=== PATIENT | female | born 1950 | race Hispanic/Latino ===

== ENCOUNTER → 2017-04-29 | Outpatient (CLI) | payer MEDICARE, MEDICAID ==
--- NOTE | 2017-04-29 11:45 | RAD ---
EXAM DESCRIPTION: Pelvis CLINICAL HISTORY: 66 years Female, PAIN IN RIGHT HIP COMPARISON: None. FINDINGS: Single view of the pelvis demonstrates no definite pelvic fracture. The symphysis and SI joints are intact and no disruption of the pubic or ischial rami are seen. Each hip is unremarkable. IMPRESSION: Mild osteopenia, otherwise normal study Electronically signed by: Harish Shepherd MD 04/29/2017 11:44 AM [facility]
--- NOTE | 2017-04-29 11:45 | RAD ---
EXAM DESCRIPTION: Knee,Right Complete CLINICAL HISTORY: 66 years, Female, PAIN IN RIGHT KNEE COMPARISON: None TECHNIQUE: Four views of the right knee FINDINGS: Advanced degenerative changes and mild osteopenia of the right knee are present. Diffuse involvement of the three joint compartments is present, most severe in the medial compartment with a suggestion of a tiny amount of synovitis or minimal pleural effusion on the lateral view. Marginal osteophytes at all of the articular surfaces is evident. Joint space narrowing is most prominent medially IMPRESSION: 1. Moderately advanced degenerative changes right knee, particularly involving the medial joint compartment Electronically signed by: Harish Shepherd MD 04/29/2017 11:44 AM [facility]
--- NOTE | 2017-04-29 11:46 | RAD ---
EXAM DESCRIPTION: Knee,Left Complete CLINICAL HISTORY: 66 years, Female, PAIN IN LEFT KNEE COMPARISON: None TECHNIQUE: Four views of the left knee FINDINGS: Four views of the left knee demonstrate mild diffuse osteopenia and modest degenerative changes with marginal osteophytes and mild narrowing and irregularity of the medial joint compartment and milder changes laterally and in the patellofemoral articulation. No acute fracture or dislocation is seen. IMPRESSION: 1. Moderate degenerative changes left knee. Electronically signed by: Harish Shepherd MD 04/29/2017 11:45 AM [facility]
--- NOTE | 2017-04-29 11:47 | RAD ---
EXAM DESCRIPTION: Chest,2 Views CLINICAL HISTORY: PRE OP COMPARISON: None TECHNIQUE: PA/lateral FINDINGS: The lungs are well expanded and clear. No infiltrates or effusions or masses are noted. The heart is normal in size and shape with no evidence of vascular congestion. The aortic arch and descending aorta is moderately tortuous The cherry and mediastinum demonstrate normal contours. The bony spine and chest wall is normal for age in appearance. IMPRESSION: Normal chest, two views Electronically signed by: Harish Shepherd MD 04/29/2017 11:46 AM [facility]
== END ==
LOC: RAD 08:05
PROVIDERS: ATTEND Orthopaedic Surgery
DX: M17.11 Unilateral primary osteoarthritis, right knee (principal); M25.561 Pain in right knee; M25.551 Pain in right hip; Z01.818 Encounter for other preprocedural examination

== ENCOUNTER 2017-05-08 05:36 | Inpatient (IN) | payer MEDICARE, MEDICAID ==
--- NOTE | 2017-05-06 10:12 | HP ---
CHIEF COMPLAINT: Knee pain. HISTORY OF PRESENT ILLNESS: Michelle is a 66-year-old female with a history of severe bilateral knee pain. She has had multiple injections in both knees. She has had no trauma related to the onset of this, denies any radiation of pain and denies any neurologic symptoms. Because of the failure of conservative measures, she has requested operative intervention. Because of the advanced nature of her arthritis, she is only a candidate for a total knee arthroplasty. After discussing the risks, benefits and alternatives to that, the patient has given informed consent. PAST SURGICAL HISTORY: None. MEDICATIONS: 1. Atenolol. 2. Lisinopril. 3. Metformin. 4. Lovastatin. 5. Omeprazole. 6. Hydrocodone. 7. Indocin. ALLERGIES: PENICILLIN. CODE STATUS: Full code. IMMUNIZATIONS: Up to date. SOCIAL HISTORY: The patient does not drink or use any illicit drugs. She does smoke. FAMILY HISTORY: None pertinent to today's complaint. REVIEW OF SYSTEMS: Negative except as indicated in the History of Present Illness. PHYSICAL EXAMINATION: VITAL SIGNS: Blood pressure 122/85. Pulse 52. Height 5'3". Weight 173. MENTAL STATUS: The patient is awake, alert, and is able to give a good history and participate in the physical. The patient is oriented to person, place and time. SKIN: Normal tone and turgor. HEENT: Normocephalic, atraumatic. Pupils equal, round and reactive. Mucosal membranes are moist. NECK: Normal range of motion. No thyromegaly, no lymphadenopathy. CHEST: Normal respiratory excursion. CARDIAC: Regular rate and rhythm. No murmurs, rubs or gallops. MUSCULOSKELETAL: Bilateral upper extremities show full active range of motion although she does have some slight shoulder pain on the right. She has intact sensation of the extremities. They are warm and well perfused. There is no crepitus. The right lower extremity shows full range of motion of the hip. She has crepitus throughout her range of motion of the knee, but she does have full extension and flexion is to about 125 degrees. Sensation is intact. It is warm and well perfused. She has no varus/valgus or anterior/posterior laxity at this time. The left lower extremity shows full range of motion of the hip. Sensation is intact throughout and it is warm and well perfused. Strength is 5/5. She has significant tenderness diffusely, but most prominently along the medial aspect. IMAGING: X-rays show advanced arthritis. ASSESSMENT: 1. Arthritis. PLAN: The plan at this point is for total knee arthroplasty. We have discussed the risks, benefits, and alternatives to that and the patient has given informed consent. [facility][id number] [facility]
[2017-05-08] MEDS ORDERED: SODIUM CHL 0.9% 100ML MINI-BAG 100 ML IVPB ONE (05:40)
[2017-05-08] MEDS ORDERED: SODIUM CHLORIDE 0.9% 100ML 100 ML IVPB ONE (05:41)
[2017-05-08] MEDS ORDERED: VANCOMYCIN HCL INJ 1,000 MG VIAL IVPB ONE ×3 (05:41→20:05)
[2017-05-08] MEDS ORDERED: SODIUM CHLORIDE 0.9% 250ML 250 ML ONE ×2 (05:41→20:05)
[2017-05-08] MEDS ORDERED: TRANEXAMIC ACID 1,000 MG/10 ML VIAL ONE ×2 (05:41→05:42)
[2017-05-08] MEDS ORDERED: LACTATED RINGERS 1,000 ML ONE ×2 (05:41→06:28)
[2017-05-08] MEDS ORDERED: ceFAZolin SODIUM 1 GM VIAL ONE ×2 (05:41→06:38)
[2017-05-08] MEDS ORDERED: fentaNYL CITRATE INJ 50 MCG/ML AMP ONE (06:27)
[2017-05-08] MEDS ORDERED: MORPHINE SULF *EPIDURAL* 1 MG/ML VIAL ONE (06:27)
[2017-05-08] MEDS ORDERED: LIDOCAINE 2 % GEL 5 ML TUBE TOP ONE (06:28)
[2017-05-08] MEDS ORDERED: MIDAZOLAM INJ 2 MG/2 ML VIAL ONE (06:28)
[2017-05-08] MEDS ORDERED: BUPIVACAINE 0.25% W/EPI 50 ML VIAL INJ ONE (06:38)
[2017-05-08] MEDS ORDERED: DEX 5% W/NACL 0.45% 1000ML 1,000 ML IVS PRN (07:09)
[2017-05-08] MEDS ORDERED: MORPHINE SULFATE INJ 10 MG/ML VIAL IM PRN (07:09)
[2017-05-08] MEDS ORDERED: ACETAMINOPHEN 325 MG TAB PO PRN (07:09)
[2017-05-08] MEDS ORDERED: PROMETHAZINE HCL INJ 12.5 MG in SODIUM CHLORIDE 0.9% 50ML 50 ML IVPB PRN (07:09)
[2017-05-08] MEDS ORDERED: ACETAMINOPHEN 500 MG TAB PO PRN (07:09)
[2017-05-08] MEDS ORDERED: MAGNESIUM HYDROXIDE 30 ML UD PO PRN (07:09)
[2017-05-08] MEDS ORDERED: TEMAZEPAM 15 MG CAP PO PRN (07:09)
[2017-05-08] MEDS ORDERED: SODIUM CHLORIDE 0.9% (FLUSH) 10 ML SYG IV PRN (07:09)
[2017-05-08] MEDS ORDERED: ONDANSETRON INJ 4 MG/2 ML VIAL IV PRN (07:09)
[2017-05-08] MEDS ORDERED: NALOXONE HCL INJ 0.4 MG/ML VIAL IV PRN (07:09)
[2017-05-08] MEDS ORDERED: ALUMINUM & MAGNESIUM HYDROXIDE 30 ML UD PO PRN (07:09)
[2017-05-08] MEDS ORDERED: BISACODYL SUPPOSITORY 10 MG PR PRN (07:09)
[2017-05-08] MEDS ORDERED: BENZOCAINE-MENTH LOZ (CEPACOL) 1 EA LOZ MT PRN (07:09)
[2017-05-08] MEDS ORDERED: PROMETHAZINE HCL INJ 25 MG in SODIUM CHLORIDE 0.9% 50ML 50 ML IVPB PRN (07:09)
[2017-05-08] MEDS ORDERED: TRANEXAMIC ACID INJ 1,000 MG in SODIUM CHLORIDE 0.9% 100ML 100 ML IVPB ONE (07:09)
[2017-05-08] MEDS ORDERED: ZOLPIDEM TARTRATE 5 MG TAB PO PRN (07:09)
[2017-05-08] MEDS ORDERED: traMADol HCL 50 MG TAB PO PRN (07:09)
[2017-05-08] MEDS ORDERED: MORPHINE SULFATE INJ 10 MG/ML VIAL IV PRN (07:09)
[2017-05-08] MEDS ORDERED: MORPHINE PCA 1 MG/ML 100 ML BAG IVPB SCH (07:30)
[2017-05-08] MEDS ORDERED: EPINEPHrine HCL AMP 1 MG/ML AMP IM ONE (10:00)
[2017-05-08] MEDS ORDERED: LIDOCAINE 1% 10 ML VIAL INJ ONE (10:00)
[2017-05-08] MEDS ORDERED: METOCLOPRAMIDE HCL INJ 10 MG/2 ML VIAL IV ONE (10:00)
[2017-05-08] MEDS ORDERED: PROPOFOL 200 MG/20 ML VIAL IV ONE (10:00)
[2017-05-08] MEDS ORDERED: DEXAMETHASONE INJ 10 MG/ML VIAL IV ONE (10:00)
--- NOTE | 2017-05-08 10:47 | OP ---
DATE OF PROCEDURE: 05/08/17 PREOPERATIVE DIAGNOSIS: 1. Left knee osteoarthritis. POSTOPERATIVE DIAGNOSIS: 1. Left knee osteoarthritis. PROCEDURE: 1. Left total knee arthroplasty. SURGEON: Elias Hussein MD. UNIFORM ATTENDANT: Barry Colón CST, SA-C. ANESTHESIA: General. COMPLICATIONS: None. FINDINGS: Severe arthritis of the knee. INDICATION: Ms. Lao has a history of severe pain that has been refractory to conservative measures. Because of the refractory nature of the pain, we talked about options for her. Options at this point would include total knee arthroplasty. After discussing the risks, benefits and alternatives to that, the patient has given informed consent for total knee arthroplasty. PROCEDURE: The patient was brought to the Operating Room and placed in supine position. General anesthesia was induced and the patient's leg was sterilely prepped and draped. Following prepping and draping, the distal femur was exposed and using an intramedullary guide, the distal femoral cut was made. The appropriate sized cutting block was measured, pinned into place, and the anterior, posterior, and chamfer cuts were made. The ACL was transected and the tibia was subluxed. Both the medial and lateral menisci were removed. An intramedullary guide was used to make the proximal tibial cut. The appropriate sized base plate was placed and a trial polyethylene was placed. The trial femur was placed, the knee was reduced, and the knee was taken through a range of motion. The knee was stable in anterior, posterior, varus and valgus stress. The patella tracked anatomically without evidence of subluxation or dislocation. After trialing, the trial components were removed and the bony surfaces were thoroughly irrigated with saline. Following irrigation, the surfaces were dried and the final components were cemented into place. The excess cement was removed and the remaining cement was allowed to cure. The knee was again taken through a range of motion to confirm stability. The wound was then irrigated with saline and closure was performed using PDS to approximate the arthrotomy followed by closure of the subcutaneous tissues with a combination of running and interrupted Monocryl sutures. Sterile dressing was placed. The patient was awoken from anesthesia and taken to Recovery. POSTOPERATIVE INSTRUCTIONS: The patient will be weight-bearing as tolerated on postoperative day 1. COMPONENTS: [employer] Triathlon knee, size 5 femur, size 4 tibia, 9 mm insert. #[id number] [facility]
--- NOTE | 2017-05-08 11:56 | RAD ---
Left knee 2 views INDICATION: Total knee arthroplasty postoperative assessment IMPRESSION: No definite complication status post left total knee arthroplasty. No evidence of retained foreign bodies. Mild patellar osteophyte formation Electronically signed by: Albaro Pool MD 05/08/2017 11:55 AM [facility]
[2017-05-08] MEDS ORDERED: SODIUM CHLORIDE 0.45% 1000ML 1,000 ML IVS ONE (12:38)
[2017-05-08] MEDS: IV SET AND CAP CHANGE INJ INJ SCH (12:53)
--- NOTE | 2017-05-08 13:45 | CONS ---
SUPERVISING PHYSICIAN: Harish Lackey MD DATE OF CONSULTATION: 05/08/17 REASON FOR CONSULTATION: Medical management. HISTORY OF PRESENT ILLNESS: Ms. Lao is a 66-year-old female who electively underwent left total knee arthroplasty today. There were no intraoperative complications. She has had bilateral knee pain with steroid injections into both knees with minimal relief. After workup, it was felt that she would benefit from total knee arthroplasty. Currently, she is postoperative and a little bit drowsy from anesthesia, but awakens and follows commands. The pain is controlled. Her family is at bedside. PAST MEDICAL HISTORY: 1. Hypertension. 2. Hyperlipidemia. 3. Diabetes mellitus,. 4. Kidney stones. PAST SURGICAL HISTORY: 1. Lithotripsy with ureteral stent placement. CURRENT MEDICATIONS: 1. Atenolol 50 mg p.o. daily. 2. Hydrocodone/ibuprofen 1 tab p.o. at bedtime. 3. Indomethacin 50 mg p.o. daily. 4. Lisinopril/HCTZ 1 tab p.o. daily. 5. Lovastatin 20 mg daily. 6. Meloxicam 7.5 mg daily. 7. Metformin 500 mg p.o. daily. 8. Flomax 0.4 mg p.o. daily. ALLERGIES: PENICILLIN. FAMILY HISTORY: Diabetes, hypertension. SOCIAL HISTORY: No drinking, no smoking, no illicit drugs. REVIEW OF SYSTEMS: Please see history of present illness. Currently, no other than the postoperative knee pain. Her 12-system review is negative. PHYSICAL EXAMINATION: VITAL SIGNS: Blood pressure 153/75. Heart rate 52. Respiratory rate 14. Temperature 96.0. Oxygen saturation 97%. GENERAL: Ms. Lao is a 66-year-old female patient in no active distress currently. HEENT: Normocephalic, atraumatic. Pupils are equal and reactive. No nasal drainage. Throat with moist mucosa. NECK: Supple. Midline trachea. No jugular venous distention. CHEST: Symmetrical with equal rise and fall of the chest with inspiration and expiration. Lung sounds are clear to auscultation bilaterally. CARDIOVASCULAR: Regular rate and rhythm. Normal S1, S2. ABDOMEN: Soft, obese. Positive bowel sounds. No tenderness to palpation. GENITOURINARY: Deferred. EXTREMITIES: Lower extremities with a brace and Spencer wrap on the left leg. Peripheral pulses are 2+. Capillary refill less than 2 seconds. NEUROLOGIC: The patient is a little bit drowsy, but awakens and follows commands without any difficulty. LABORATORY: Preoperative labs from about a week are pretty much unremarkable. ASSESSMENT: 1. Osteoarthritis of the left knee status post left total knee arthroplasty. 2. Hypertension. 3. Bradycardia. 4. Diabetes Mellitus. PLAN: Post-op orders of Dr. Hussein are active, which includes pain control, antibiotics, and physical therapy. I will resume her home medications. She took her blood pressure medication this morning, and the bradycardia is likely the result of the atenolol. Additionally, I will resume her diabetes medication and check her glucoses. If she is uncontrolled, we can start a sliding scale. She is a patient of the [facility] in [place], so I do not have any records on her. Will check labs in the morning. #[id number] [facility]
[2017-05-08] MEDS ORDERED: ceFAZolin SODIUM 2 GRAMS PREMI 50 ML IVPB ONE ×3 (14:38→20:03)
[2017-05-08] MEDS: CELECOXIB 100 MG CAP PO SCH ×2 (14:49→18:15)
[2017-05-08] MEDS: MAGNESIUM OXIDE 400 MG TAB PO SCH (14:50)
[2017-05-08] MEDS: ceFAZolin SODIUM 2 GRAMS PREMI 2 GM in PREMIX BAG 1 BAG IVPB SCH ×2 (14:51→22:38)
[2017-05-08] MEDS: SODIUM CHLORIDE 0.45% 1000ML 1,000 ML IVS PRN (15:10)
[2017-05-08] MEDS ORDERED: GLUCAGON INJ 1 MG VIAL SUBCU PRN (15:53)
[2017-05-08] MEDS ORDERED: DEXTROSE 50% 25 GM/50 ML SYG IV PRN (15:53)
[2017-05-08] MEDS: INSULIN LISPRO 100 UNITS/ML PEN SUBCU SCH ×2 (16:49→21:01)
[2017-05-08] MEDS: TAMSULOSIN 0.4 MG CAP PO SCH (19:27)
[2017-05-08] MEDS: VANCOMYCIN HCL INJ 1,000 MG in SODIUM CHLORIDE 0.9% 250ML 250 ML IVPB SCH (20:09)
[2017-05-08] MEDS: DOCUSATE CALCIUM 240 MG CAP PO SCH (20:42)
[2017-05-08] MEDS ORDERED: NON-FORMULARY MEDICATION 1 EA MIS (Lovastatin [Lovastatin] 20 MG) PO SCH (21:00)
[2017-05-08] MEDS: ENOXAPARIN SODIUM 30 MG/0.3 ML SYG SUBCU SCH (21:54)
[2017-05-09] MEDS: ceFAZolin SODIUM 2 GRAMS PREMI 2 GM in PREMIX BAG 1 BAG IVPB SCH (06:48)
[2017-05-09] MEDS ORDERED: OMEPRAZOLE CAP 20 MG CAP PO SCH (07:00)
[2017-05-09] MEDS ORDERED: SODIUM CHLORIDE 0.9% 250ML 250 ML ONE (07:54)
[2017-05-09] MEDS ORDERED: VANCOMYCIN HCL INJ 1,000 MG VIAL IVPB ONE (07:55)
[2017-05-09] MEDS: ENOXAPARIN SODIUM 30 MG/0.3 ML SYG SUBCU SCH ×2 (08:22→22:32)
[2017-05-09] MEDS: MAGNESIUM OXIDE 400 MG TAB PO SCH (08:22)
[2017-05-09] MEDS: metFORMIN HCL 500 MG TAB PO SCH (08:22)
[2017-05-09] MEDS: INSULIN LISPRO 100 UNITS/ML PEN SUBCU SCH ×4 (08:23→21:01)
[2017-05-09] MEDS: CELECOXIB 100 MG CAP PO SCH ×2 (08:23→18:12)
[2017-05-09] MEDS: VANCOMYCIN HCL INJ 1,000 MG in SODIUM CHLORIDE 0.9% 250ML 250 ML IVPB SCH (08:24)
[2017-05-09] MEDS ORDERED: NON-FORMULARY MEDICATION 1 EA MIS (Lisinopril & Hydrochlorothiazi [Lisinopril/Hctz 20-25 M PO SCH (09:00)
[2017-05-09] MEDS: HYDROcodone 5MG/APAP 325MG 1 EA TAB PO PRN ×3 (09:46→21:01)
[2017-05-09] MEDS: TAMSULOSIN 0.4 MG CAP PO SCH (09:47)
[2017-05-09] MEDS: LISINOPRIL 10 MG TAB PO SCH (09:47)
[2017-05-09] MEDS: hydroCHLOROthiazide 25 MG TAB PO SCH (09:48)
--- NOTE | 2017-05-09 11:12 | PN ---
DATE: 05/08/17 POSTOPERATIVE CHECK SUBJECTIVE: Ms. Lao is doing really well and her pain is well controlled. OBJECTIVE: Afebrile. Vital signs stable. Dressing is clean, dry and intact. ASSESSMENT: Status post total knee arthroplasty. PLAN: She will begin weight-bearing as tolerated on postoperative day 1. #[id number] [facility]
--- NOTE | 2017-05-09 11:13 | PN ---
DATE: 05/09/17 SUBJECTIVE: Ms. Lao is doing well. She has good pain controlled at this point. OBJECTIVE: Afebrile. Vital signs stable. Dressing is clean, dry and intact. ASSESSMENT: Status post total knee arthroplasty. PLAN: She will begin weight-bearing as tolerated today and progress CPM as tolerated. #[id number] [facility]
[2017-05-09] MEDS: CYCLOBENZAPRINE HCL 10 MG TAB PO PRN ×2 (14:45→22:45)
--- NOTE | 2017-05-09 19:15 | PN ---
DATE: 05/09/17 SUPERVISING PHYSICIAN: Harish Lackey M.D. SUBJECTIVE: The patient is sitting up in her hospital bed. She is asleep. She awakens easily. Has no complaints of shortness of breath, nausea, vomiting , diarrhea or constipation. Discussed discharge plans and will most likely need home health or Swing Bed due to her being the only person that can take her and he recently had surgery and is having a difficulty time getting around. OBJECTIVE: VITAL SIGNS: She is afebrile, heart rate is 63, blood pressure 146/ 74, respiratory rate 18, O2 sat is 95% on room air. RESPIRATORY: Essentially clear to auscultation bilaterally. CARDIAC: Regular rate and rhythm. ABDOMEN: Soft, nondistended, non-tender. Bowel sounds are positive. EXTREMITIES: No cyanosis, clubbing or edema. Bilateral pedal pulses are palpable at +2. She has Iceman in place to her left knee. NEUROLOGIC: She is awake, alert and oriented times three. LABORATORY: Hemoglobin 12.2, hematocrit 36.5. Blood sugars have been running between 111 and 144. All other labs and films have been reviewed via the EMR. ASSESSMENT: 1. Osteoarthritis of the left knee status post left total knee arthroplasty performed per Dr. Elias Hussein, orthopedic surgeon. 2. Hypertension. 3. Bradycardia. 4. Diabetes mellitus type 2. PLAN: We will continue present supportive care. She will continue with her physical therapy for strengthening and conditioning. Orthopedic issues will be per Dr. Hussein. We will need to decide if she will be a Swing Bed admission or she will do outpatient physical therapy with her home health. She continues to have a somewhat low blood pressure and at this point it has not been resumed. It may need to be discontinued at discharge and let her primary care physician restart that if she continues to have a low pulse rate. I have encouraged good pulmonary hygiene. We will continue to monitor the patient closely and follow as needed. Dr. Lackey is the collaborating physician available for consultation. #[id number] [facility]
[2017-05-09] MEDS ORDERED: OMEPRAZOLE CAP 20 MG CAP ONE (19:54)
[2017-05-09] MEDS: DOCUSATE CALCIUM 240 MG CAP PO SCH (21:02)
[2017-05-09] MEDS: SIMVASTATIN 10 MG TAB PO SCH (21:02)
[2017-05-10] MEDS: HYDROcodone 5MG/APAP 325MG 1 EA TAB PO PRN ×2 (05:31→16:07)
[2017-05-10] MEDS: OMEPRAZOLE CAP 20 MG CAP PO SCH (06:10)
[2017-05-10] MEDS: INSULIN LISPRO 100 UNITS/ML PEN SUBCU SCH ×4 (07:40→22:30)
[2017-05-10] MEDS: CELECOXIB 100 MG CAP PO SCH ×2 (07:47→16:59)
[2017-05-10] MEDS: metFORMIN HCL 500 MG TAB PO SCH (07:48)
[2017-05-10] MEDS: LISINOPRIL 10 MG TAB PO SCH (08:39)
[2017-05-10] MEDS: MAGNESIUM OXIDE 400 MG TAB PO SCH (08:39)
[2017-05-10] MEDS: hydroCHLOROthiazide 25 MG TAB PO SCH (08:39)
[2017-05-10] MEDS: SODIUM CHLORIDE 0.9% (FLUSH) 10 ML SYG IV SCH ×2 (08:40→20:33)
[2017-05-10] MEDS: TAMSULOSIN 0.4 MG CAP PO SCH (08:40)
[2017-05-10] MEDS: ENOXAPARIN SODIUM 30 MG/0.3 ML SYG SUBCU SCH ×2 (09:58→22:30)
--- NOTE | 2017-05-10 19:34 | PN ---
DATE: 05/10/17 SUPERVISING PHYSICIAN: Harish Lackey M.D. SUBJECTIVE: The patient is sitting up in her hospital bed. She is in no acute distress. She has no complaints of chest pain, nausea, vomiting, diarrhea or constipation. OBJECTIVE: She is afebrile, heart rate 84, blood pressure 102/63, respiratory rate 16, O2 sat is 95% on room air. RESPIRATORY: Essentially clear to auscultation bilaterally. CARDIAC: Regular rate and rhythm. GASTROINTESTINAL: Abdomen is soft, nondistended, non-tender. Bowel sounds are positive. EXTREMITIES: No cyanosis, clubbing or edema. She has the dressing to her left knee that is dry and intact. Her bilateral pedal pulses are palpable at +2. NEUROLOGIC: She is awake, alert and oriented times three. LABORATORY: There are no labs or films to report at this time. ASSESSMENT: 1. Osteoarthritis of the left knee status post left total knee arthroplasty performed by Dr. Elias Hussein, orthopedic surgeon. Postoperative day number 2. 2. Hypertension. 3. Bradycardia. 4. Diabetes mellitus type 2. PLAN: We will continue present supportive care. She will continue with her physical therapy for strengthening and conditioning. Her told me they had a home health agency for her physical therapy on discharge, but he was unsure of the name of it. I asked him to bring the name of the home health agency to the hospital tomorrow so we can plan for discharge. I have encouraged good pulmonary hygiene. We will continue to monitor her closely and follow as needed. Dr. Lackey is the collaborating physician available for consultation. #[id number] [facility]
[2017-05-10] MEDS: SIMVASTATIN 10 MG TAB PO SCH (20:33)
[2017-05-10] MEDS: DOCUSATE CALCIUM 240 MG CAP PO SCH (20:33)
[2017-05-10] MEDS: CYCLOBENZAPRINE HCL 10 MG TAB PO PRN (20:33)
[2017-05-11] MEDS: HYDROcodone 5MG/APAP 325MG 1 EA TAB PO PRN ×2 (05:50→09:31)
[2017-05-11] MEDS: OMEPRAZOLE CAP 20 MG CAP PO SCH (06:25)
[2017-05-11] MEDS: INSULIN LISPRO 100 UNITS/ML PEN SUBCU SCH ×2 (08:02→14:06)
[2017-05-11] MEDS: IV SET AND CAP CHANGE INJ INJ SCH (08:03)
[2017-05-11] MEDS: metFORMIN HCL 500 MG TAB PO SCH (08:03)
[2017-05-11] MEDS: CELECOXIB 100 MG CAP PO SCH (08:03)
[2017-05-11] MEDS: TAMSULOSIN 0.4 MG CAP PO SCH (09:27)
[2017-05-11] MEDS: hydroCHLOROthiazide 25 MG TAB PO SCH (09:27)
[2017-05-11] MEDS: MAGNESIUM OXIDE 400 MG TAB PO SCH (09:27)
[2017-05-11] MEDS: LISINOPRIL 10 MG TAB PO SCH (09:27)
[2017-05-11] MEDS: SODIUM CHLORIDE 0.9% (FLUSH) 10 ML SYG IV SCH (09:28)
[2017-05-11] MEDS: ENOXAPARIN SODIUM 30 MG/0.3 ML SYG SUBCU SCH (10:41)
[2017-05-11 14:06] VITALS: BP 107/75; TEMP 98.8; O2SAT 96
[2017-05-11] MEDS ORDERED: MAGNESIUM HYDROXIDE 30 ML UD PO ONE (21:00)
[2017-05-11] MEDS ORDERED: BISACODYL SUPPOSITORY 10 MG PR ONE (21:00)
--- NOTE | 2017-05-11 22:02 | DS ---
SUPERVISING PHYSICIAN: Harish Lackey M.D. DISCHARGE DIAGNOSIS: 1. Osteoarthritis of the left knee status post left total knee arthroplasty performed by Dr. Elias Hussein, orthopedic surgeon. Postoperative day number 3. 2. Hypertension, stable. 3. History of bradycardia. 4. Diabetes mellitus type 2, stable on oral therapy. REASON FOR HOSPITALIZATION: Ms. Lao is a 66 year-old female that underwent elective left total knee arthroplasty on 05/08/17. She had a longstanding history of osteoarthritis and severe pain in her left knee, and had tried multiple outpatient treatment scenarios to include steroid injections and physical therapy. She continued to have significant pain and therefore requested that operative management be completed. She had a left total knee arthroplasty on date of admission, 05/08/17 and was followed closely postoperatively, and was found to be in stable condition. LABORATORY STUDIES: Postoperative H&H was 12.2 and 36.5. Blood sugars were fairly well controlled between 105 and 152. HOSPITAL COURSE: Ms. Lao was admitted on 05/08/17 for elective left total knee arthroplasty as noted above in History of Present Illness. She had no complications postoperatively and did well through recovery. She started her physical therapy program and was able to participate without any complications and had good pain control. It was felt that on date of discharge that she had met her physical therapy goals and was able to be continued in the outpatient setting with continued physical therapy and home health. PLAN: Ms. Lao was discharged to have close clinical followup with Dr. Hussein as scheduled. She is to resume her home medications as instructed. She is to have wound management as per Dr. Hussein's postoperative management and is to have only showers, no tub baths. She is to resume her activities as directed by Physical Therapy and utilize a walker at all times. She was resumed on an 1800 calorie ADA diet as previous as tolerated. New medications at discharge included: 1. Flexeril 10 mg every 8 hours as needed for muscle spasms, #15, no refills. 2. Sun 5/325 one to two tablets every 4 hours as needed, #50, prescription written by Dr. Hussein. 3. Xarelto 10 mg daily for 8 days, no refills. All other medications prior to admission were continued. Condition at discharge was stable and improved. [facility][id number] [facility]
[2017-05-12] MEDS: SODIUM CHLORIDE 0.45% 1000ML 1,000 ML IVS PRN (10:08)
== END 2017-05-11 14:30 | disposition home health service (06) | DRG 470 ==
LOC: AMB 05:36 → MS 11:02
PROVIDERS: ADMIT Orthopaedic Surgery; ATTEND Nurse Practitioner Family
PROC: 0SRD0J9 Replacement of Left Knee Joint with Synthetic Substitute, Cemented, Open Approach (ICD-10-PCS; principal; 2017-05-08 07:00)
DX: M16.12 Unilateral primary osteoarthritis, left hip (principal); I10 Essential (primary) hypertension; E78.5 Hyperlipidemia, unspecified; E11.9 Type 2 diabetes mellitus without complications; Z88.0 Allergy status to penicillin; Z79.84 Long term (current) use of oral hypoglycemic drugs

== ENCOUNTER → 2017-10-25 | Outpatient (CLI) | payer MEDICARE, MEDICAID ==
--- NOTE | 2017-10-25 10:53 | RAD ---
EXAM DESCRIPTION: Knee,Left 2 or More Views CLINICAL HISTORY: 67 years Female, PAIN IN LEFT KNEE COMPARISON: None. FINDINGS: Four views of the left knee show postoperative changes related to previous left knee arthroplasty. No hardware complication is identified. No periprosthetic or other fracture is seen. No malalignment. No definite left knee joint effusion. IMPRESSION: Uncomplicated postoperative changes in the left knee. No apparent abnormality to explain left knee pain. Electronically signed by: Bayron Baker MD 10/25/2017 10:52 AM CDT
--- NOTE | 2017-10-25 10:53 | RAD ---
EXAM DESCRIPTION: Pelvis CLINICAL HISTORY: 67 years Female, PAIN IN RIGHT HIP COMPARISON: None. FINDINGS: Single AP view of the pelvis shows no apparent pelvic fracture. Mild right hip joint space narrowing. No focal bone lesion or soft tissue abnormality. IMPRESSION: Mild degenerative changes in the right hip, otherwise unremarkable exam. Electronically signed by: Bayron Baker MD 10/25/2017 10:52 AM CDT
== END ==
LOC: RAD 08:31
PROVIDERS: ATTEND Orthopaedic Surgery
DX: M25.562 Pain in left knee (principal); M25.552 Pain in left hip; Z98.890 Other specified postprocedural states

== ENCOUNTER → 2018-01-20 | Outpatient (CLI) | payer MEDICARE, MEDICAID ==
--- NOTE | 2018-01-20 12:34 | RAD ---
EXAM: Shoulder,Right 2 or More Views CLINICAL HISTORY: PAIN IN RIGHT SHOULER COMPARISON STUDY: None TECHNICAL: Internal and external rotation images. FINDINGS: There is no fracture and no dislocation. There is no acute osseous abnormality. There are mild degenerative changes of the acromioclavicular joint. Inferior projecting osteophytes can cause impingement symptoms. The visible chest is negative. IMPRESSION: MILD AC JOINT DEGENERATIVE CHANGES, OTHERWISE NEGATIVE SHOULDER. Electronically signed by: Pablo Carballo MD 01/20/2018 12:33 PM CDT
== END ==
LOC: RAD 10:16
PROVIDERS: ATTEND Orthopaedic Surgery
DX: M25.511 Pain in right shoulder (principal); M12.811 Other specific arthropathies, not elsewhere classified, right shoulder

== ENCOUNTER → 2018-07-11 | Outpatient (CLI) | payer MEDICARE, MEDICAID ==
--- NOTE | 2018-07-12 08:48 | RAD ---
EXAM DESCRIPTION: Knee,Left Complete (accession [id number]), Knee,Right Complete (accession [id number]): CR/DR/XR. CLINICAL HISTORY: 68 years [id number], M25.552 COMPARISON: Left knee radiographs 10/25/2017. TECHNIQUE: three views bilateral knees. Standing AP, standing 45 degrees flexion, lateral, and patellar sunrise views. FINDINGS: Right knee-moderate joint space loss medial compartment. Marginal spurs medial and lateral. Overall bone density is decreased. Superior and lateral patellar spurs. Medial and lateral patellofemoral marginal spurs. Narrowing of the lateral space. No abnormal radiodense objects in the soft tissues or joint spaces. No fractures. Left knee-total knee arthroplasty. Components in customary position and near-anatomic alignment. Bone abutting the components is unremarkable. Minimal lateral shift of the patella on the sunrise view. No fractures. No abnormal radiodense objects in the joint spaces. IMPRESSION: Moderate joint space loss right knee medial compartment with marginal spurs. Marginal spurs and lateral patellofemoral joint space loss. No acute bony abnormality. Left total knee arthroplasty customary position and near-anatomic alignment. Electronically signed by: Barry Carbajal MD 07/12/2018 8:45 AM CDT
--- NOTE | 2018-07-12 08:49 | RAD ---
EXAM DESCRIPTION: Knee,Left Complete (accession [id number]), Knee,Right Complete (accession [id number]): CR/DR/XR. CLINICAL HISTORY: 68 years [id number], M25.552 COMPARISON: Left knee radiographs 10/25/2017. TECHNIQUE: three views bilateral knees. Standing AP, standing 45 degrees flexion, lateral, and patellar sunrise views. FINDINGS: Right knee-moderate joint space loss medial compartment. Marginal spurs medial and lateral. Overall bone density is decreased. Superior and lateral patellar spurs. Medial and lateral patellofemoral marginal spurs. Narrowing of the lateral space. No abnormal radiodense objects in the soft tissues or joint spaces. No fractures. Left knee-total knee arthroplasty. Components in customary position and near-anatomic alignment. Bone abutting the components is unremarkable. Minimal lateral shift of the patella on the sunrise view. No fractures. No abnormal radiodense objects in the joint spaces. IMPRESSION: Moderate joint space loss right knee medial compartment with marginal spurs. Marginal spurs and lateral patellofemoral joint space loss. No acute bony abnormality. Left total knee arthroplasty customary position and near-anatomic alignment. Electronically signed by: Barry Carbajal MD 07/12/2018 8:45 AM CDT
== END ==
LOC: RAD 07:54
PROVIDERS: ATTEND Orthopaedic Surgery
DX: M25.861 Other specified joint disorders, right knee (principal); M25.761 Osteophyte, right knee; M25.762 Osteophyte, left knee; Z96.652 Presence of left artificial knee joint

== ENCOUNTER 2019-04-16 11:49 | Emergency (ER) | payer MEDICARE, MEDICAID ==
[2019-04-16] MEDS ORDERED: SODIUM CHLORIDE 0.9% 1000ML 1,000 ML IVS ONE (12:26)
[2019-04-16] MEDS ORDERED: ACETAMINOPHEN 500 MG TAB PO ONE (12:26)
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
[2019-04-16 12:37] VITALS: TEMP 98.1
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
[2019-04-16 14:17] VITALS: BP 155/67; O2SAT 99
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
== END 2019-04-16 18:00 | disposition home or self-care (01) ==
LOC: ER 11:49
DX: S09.90XA Unspecified injury of head, initial encounter (principal); M54.2 Cervicalgia; M25.511 Pain in right shoulder; M79.651 Pain in right thigh; S90.811A Abrasion, right foot, initial encounter; E11.9 Type 2 diabetes mellitus without complications; I10 Essential (primary) hypertension; E78.00 Pure hypercholesterolemia, unspecified; F17.200 Nicotine dependence, unspecified, uncomplicated; Z79.899 Other long term (current) drug therapy; Z88.0 Allergy status to penicillin; V49.88XA Car occupant (driver) (passenger) injured in other specified transport accidents, initial encounter; Y92.410 Unspecified street and highway as the place of occurrence of the external cause
CPT/HCPCS: 70450; 71045; 72125; 73030; 73521; 73560; 73610; 73630; 74177; 80053; 81001; 82948; 83690; 84484; 85025; 93005; J7030